=== PATIENT | female | born 1935 | race Hispanic/Latino ===

== ENCOUNTER 2016-05-02 13:54 | Outpatient (CLI) | payer MEDICARE ==
--- NOTE | 2016-05-02 15:28 | Cat Scan Report ---
CT LOWER EXTREMITY LEFT WITHOUT CONTRAST: History: Left knee pain, contusion. Technique: Helical CT with sagittal and coronal reformatted images. Findings: There is moderate to severe osteopenia. On images 55-58, series 3, very subtle nondisplaced fracture lines are identified in the lateral tibial plateau. There is no evidence for bony depression or displaced fragment. The medial tibial plateau and tibial spines are not involved. The distal femur, proximal fibula, and patella are intact. The joint space is unremarkable for this persons age. There may be minimal medial compartment joint space narrowing. A small hemarthrosis extends to the suprapatellar bursa. The remaining soft tissue structures are unremarkable. Impression: Severe osteopenia. Nondisplaced lateral tibial plateau fracture. Small hemarthrosis.
== END 2016-05-02 13:55 | disposition home or self-care (01) ==
LOC: CT 13:54
PROVIDERS: ATTEND Family Medicine
DX: S80.02XA Contusion of left knee, initial encounter (principal); M85.862 Other specified disorders of bone density and structure, left lower leg; M25.08 Hemarthrosis, other specified site; X58.XXXA Exposure to other specified factors, initial encounter; Y93.89 Activity, other specified; Y92.89 Other specified places as the place of occurrence of the external cause; Y99.8 Other external cause status

== ENCOUNTER 2016-06-27 10:52 | Emergency (ER) | payer MEDICARE ==
--- NOTE | 2016-06-27 12:17 | XRay Report ---
RIGHT WRIST, 4 VIEWS: History: wrist pain, injury. Osteopenia is evident. No acute osseous findings or joint pathology is appreciated. Mild osteoarthritic changes are noted. There is mild diffuse soft tissue swelling. IMPRESSION: No acute osseous findings.
[2016-06-27] MEDS ORDERED: BOOSTRIX IM ONE (14:02)
[2016-06-27] MEDS ORDERED: TYLENOL PO ONE (14:02)
--- NOTE | 2016-06-27 15:23 | Emergency Department Report ---
ED Fall HPI - General Chief Complaint: Fall Stated Complaint: FALL/WRIST/FACE SWOLLEN Time Seen by Provider: 06/27/16 13:47 Source: patient, family Mode of arrival: Ambulatory Limitations: No Limitations - History of Present Illness Initial Comments: PT states 2 days ago she was walking down the basement steps and she was on the 2nd step from the bottom and she turned around to go upstairs and fell. PT states she hurt her R wrist. PT states she hit her head on concrete. PT denies neck or back pain. PT states she took 2 tylenol and went to bed. PT states the next morning she woke up and she had blood on her pillow and she realized she had cut her head when she fell. PT states she thought she should seek medical treatment after she saw how bruised her R wrist was MD Complaint: fall Onset/Timin -: Sudden, days(s) Fall From: down stairs (#) (2) When Fall Occurred: # days [employer] (2) Fall Witnessed: no Place Fall Occurred: home Loss of Consciousness: none Prolonged Down Time?: no Symptoms Prior to Fall: none, other (pt states she was turning around to go upstairs and answer phone ) Location: head, other (R wrist ) Location - Extremities: Right: Arm Severity scale (0 -10): 5 Quality: aching Context: tripped/slipped Associated Symptoms: headache. denies: neck pain, chest paint, shortness of breath, abdominal pain, unable to walk, lightheaded, vertigo - Related Data Home Medications Medication Instructions Recorded Confirmed Last Taken Cyanocobalamin (Vitamin B-12) 1,000 mcg IM QWEEK 04/21/15 12/25/15 Unknown [B-12] Lisinopril [Zestril TAB] 20 mg PO DAILY 04/21/15 12/25/15 12/25/15 Previous Rx's Medication Instructions Recorded Last Taken Type Clindamycin [Clindamycin CAP] 150 mg PO Q8HR 10 Days 12/28/15 Unknown Rx Clindamycin [Clindamycin CAP] 300 mg PO Q8H 10 Days 12/28/15 Unknown Rx Acetaminophen [Acetaminophen TAB] 500 mg PO Q6HR PRN #15 tablet 06/27/16 Unknown Rx Allergies Allergy/AdvReac Type Severity Reaction Status Date / Time Sulfa (Sulfonamide Allergy Unknown Verified 04/24/15 14:40 Antibiotics) streptomycin AdvReac Rash Verified 04/24/15 14:40 ED Review of Systems ROS: Stated complaint: FALL/WRIST/FACE SWOLLEN Other details as noted in HPI Comment: All other systems reviewed and negative Respiratory: denies: shortness of breath Cardiovascular: denies: chest pain Gastrointestinal: denies: abdominal pain, nausea, vomiting Musculoskeletal: joint swelling. denies: back pain Skin: change in color (brusing to R wrist ) Neurological: headache. denies: confusion ED Past Medical Hx - Past Medical History Previous Medical History?: Yes Hx Hypertension: Yes Hx CVA: No Hx Heart Attack/AMI: No Hx Congestive Heart Failure: No Hx Diabetes: No Hx Deep Vein Thrombosis: No Hx Pulmonary Embolism: No Hx GERD: No Hx Liver Disease: No Hx Renal Disease: No Hx Sickle Cell Disease: No Hx Arthritis: No Hx Headaches / Migraines: No Hx Seizures: No Hx Kidney Stones: No Hx Psychiatric Treatment: No Hx Asthma: No Hx COPD: No Hx Tuberculosis: No Hx Dementia: No Hx HIV: No Additional medical history: MS - Surgical History Past Surgical History?: Yes Hx Coronary Stent: No Hx Open Heart Surgery: No Hx Pacemaker: No Hx Internal Defibrillator: No Hx Cholecystectomy: No Hx Appendectomy: No Hx Breast Surgery: No Additional Surgical History: OVARIAN CYSTS REMOVED - Social History Smoking Status: Never Smoker Substance Use Type: Prescribed - Medications Home Medications: Home Medications Medication Instructions Recorded Confirmed Last Taken Type Cyanocobalamin (Vitamin B-12) 1,000 mcg IM QWEEK 04/21/15 12/25/15 Unknown History [B-12] Lisinopril [Zestril TAB] 20 mg PO DAILY 04/21/15 12/25/15 12/25/15 History Clindamycin [Clindamycin CAP] 150 mg PO Q8HR 10 Days 12/28/15 Unknown Rx Clindamycin [Clindamycin CAP] 300 mg PO Q8H 10 Days 12/28/15 Unknown Rx Acetaminophen [Acetaminophen TAB] 500 mg PO Q6HR PRN #15 tablet 06/27/16 Unknown Rx ED Physical Exam - General Limitations: No Limitations General appearance: alert, in no apparent distress, other (thin ) - Head Head exam: Present: normocephalic, other (small scab to L Temporal region, linear abrasion to R cheek, not tender. ) - Eye Eye exam: Present: normal appearance, EOMI. Absent: conjunctival injection - ENT ENT exam: Present: normal exam, mucous membranes moist, normal external ear exam - Neck Neck exam: Present: normal inspection, full ROM, other (no post midline c-spine tenderness ). Absent: tenderness - Respiratory Respiratory exam: Present: normal lung sounds bilaterally. Absent: respiratory distress, chest wall tenderness - Cardiovascular Cardiovascular Exam: Present: regular rate, normal rhythm, normal heart sounds - GI/Abdominal GI/Abdominal exam: Present: soft. Absent: tenderness - Extremities Exam Extremities exam: Present: normal capillary refill - Expanded Upper Extremity Exam Right Elbow exam: Present: normal inspection, full ROM. Absent: tenderness Forearm Wrist exam: Present: full ROM, tenderness, swelling, ecchymosis. Absent : deformity, dislocation, tenderness over anatomical snuff box Hand Wrist exam: Present: full ROM, ecchymosis. Absent: tenderness, swelling Vascular: Present: normal capillary refill, radial pulse. Absent: vascular compromise, pulse deficit radial art - Back Exam Back exam: Present: normal inspection, full ROM. Absent: tenderness, CVA tenderness (R), CVA tenderness (L), paraspinal tenderness, vertebral tenderness - Neurological Exam Neurological exam: Present: alert, oriented X3 - Psychiatric Psychiatric exam: Present: normal affect, normal mood - Skin Skin exam: Present: warm, dry ED Course Vital Signs 06/27/16 06/27/16 11:13 16:44 Temperature 98 F Pulse Rate 86 78 Respiratory 16 18 Rate Blood Pressure 173/82 Blood Pressure 154/74 [Left] O2 Sat by Pulse 99 100 Oximetry - Reevaluation(s) Reevaluation #1: 06/27/16 15:49 PT aware of XR and CT results. Reevaluation #2: 06/27/16 16:37 PT placed in velcro splint by nursing staff. pt reports decrease in pain. pt nvi - Pulse Oximetry Interpretation Digit-Finger Initial Pulse Oximetry Readin Actions Taken: none ED Medical Decision Making - Radiology Data Radiology results: report reviewed CT head- nap R wrist - NAP - Differential Diagnosis contusion, fracture, intracranial process Critical Care Time: No Critical care attestation.: If time is entered above; I have spent that time in minutes in the direct care of this critically ill patient, excluding procedure time. ED Disposition Clinical Impression: Head injury Qualifiers: Encounter type: initial encounter Qualified Code(s): S09.90XA - Unspecified injury of head, initial encounter Fall Qualifiers: Encounter type: initial encounter Qualified Code(s): W19.XXXA - Unspecified fall, initial encounter Contusion of wrist, right Qualifiers: Encounter type: initial encounter Qualified Code(s): S60.211A - Contusion of right wrist, initial encounter Disposition: DISCHARGED TO HOME OR SELFCARE Is pt being admited?: No Does the pt Need Aspirin: No Condition: Stable Instructions: Wrist Injury (ED), Fall Prevention for Older Adults (ED), Minor Head Injury (ED) Additional Instructions: Follow up with your PCP in 2-3 days Follow up with your ortho MD in 3-5 days, if your pain persists, you may need repeat imaging Hold hand rail when walking downstairs. Wear your wrist splint when you are up and active. Prescriptions: Acetaminophen [Acetaminophen TAB] 500 mg PO Q6HR PRN #15 tablet PRN Reason: Pain Referrals: JOSE D MAIER MD [Primary Care Provider] - 3-5 Days JONY WASHINGTON MD [Staff Physician] - 3-5 Days Time of Disposition: 15:54
--- NOTE | 2016-06-27 15:35 | Cat Scan Report ---
CT HEAD WITHOUT CONTRAST: HISTORY: Head injury. TECHNIQUE: Sequential CT images without contrast. FINDINGS: Images obtained show bilateral prominence of the sulci and ventricles. There are no abnormal intra- or extra-axial blood or fluid collections. There are no focal masses or evidence of mass effect. The lucero white matter differentiation appears within normal limits. Regions of periventricular decreased attenuation are consistent with microangiopathic ischemic disease. The posterior fossa structures including the fourth ventricle, cerebellum, and brainstem appear normal. IMPRESSION: Evidence of atrophy and microangiopathic ischemic disease. No acute intracranial process noted.
[2016-06-27 16:45] VITALS: BP 154/74
== END 2016-06-27 16:45 | disposition home or self-care (01) ==
LOC: ED 10:52
DX: S09.90XA Unspecified injury of head, initial encounter (principal); S60.211A Contusion of right wrist, initial encounter; I10 Essential (primary) hypertension; W10.8XXA Fall (on) (from) other stairs and steps, initial encounter; Y93.89 Activity, other specified; Y99.8 Other external cause status; Y92.89 Other specified places as the place of occurrence of the external cause; Z88.2 Allergy status to sulfonamides; Z88.1 Allergy status to other antibiotic agents
CPT/HCPCS: 70450; 90471; 90715

== ENCOUNTER 2020-11-25 12:12 | Emergency (ER) | payer MEDICARE ==
[2020-11-25] MEDS ORDERED: ONDANSETRON 4 MG/2 ML INJ IV ONE (12:26)
[2020-11-25] MEDS ORDERED: SODIUM CHLORIDE 0.9% 1000 ML 1,000 ML IV ONE (12:26)
--- NOTE | 2020-11-25 12:29 | Emergency Department Report ---
ED N/V/D HPI - General Stated complaint: DIARRHEA/VOMITING Time Seen by Provider: 11/25/20 12:25 - History of Present Illness Initial comments: Patient presents secondary to nausea, vomiting, and diarrhea. Symptoms started about 30 minutes prior to arrival. She states that she felt like she was going to be sick. She then all of a sudden had abrupt onset of nausea, vomiting, and diarrhea. There is no hematemesis or coffee-ground emesis. There is no melenic stool. She has had no sick contacts. She has not been on antibiotics lately. She does not know what might be causing her stomach upset. She has not had anything like this before. She states she does not know what she ate last night for dinner. This morning, she had toast and a cup of tea and that seemed to taste okay. There is no abdominal pain associate with this. - Related Data Home Medications Medication Instructions Recorded Confirmed Last Taken Cyanocobalamin (Vitamin B-12) 1,000 mcg IM QWEEK 04/21/15 12/09/16 Unknown [B-12] lisinopriL [Zestril TAB] 20 mg PO DAILY 04/21/15 12/09/16 12/25/15 Previous Rx's Medication Instructions Recorded Last Taken Type Acetaminophen [Acetaminophen TAB] 500 mg PO Q6HR PRN #15 tablet 06/27/16 Unknown Rx Ondansetron [Zofran Odt] 4 mg PO Q8HR PRN #20 tab.rapdis 11/25/20 Unknown Rx Allergies Allergy/AdvReac Type Severity Reaction Status Date / Time Sulfa (Sulfonamide Allergy Unknown Verified 04/24/15 14:40 Antibiotics) streptomycin AdvReac Rash Verified 04/24/15 14:40 ED Review of Systems ROS: Stated complaint: DIARRHEA/VOMITING Other details as noted in HPI Comment: All other systems reviewed and negative Constitutional: denies: fever Eyes: denies: eye pain ENT: denies: throat pain Respiratory: denies: cough Cardiovascular: denies: chest pain Endocrine: denies: unexplained weight loss Gastrointestinal: as per HPI Genitourinary: denies: urgency Musculoskeletal: denies: back pain Skin: denies: rash Neurological: denies: headache Hematological/Lymphatic: denies: easy bruising ED Past Medical Hx - Past Medical History Hx Hypertension: Yes Hx CVA: No Hx Heart Attack/AMI: No Hx Congestive Heart Failure: No Hx Diabetes: No Hx Deep Vein Thrombosis: No Hx Pulmonary Embolism: No Hx GERD: No Hx Liver Disease: No Hx Renal Disease: No Hx Sickle Cell Disease: No Hx Arthritis: Yes Hx Headaches / Migraines: No Hx Seizures: No Hx Kidney Stones: No Hx Psychiatric Treatment: No Hx Asthma: No Hx COPD: No Hx Tuberculosis: No Hx Dementia: No Hx HIV: No Additional medical history: MS - Surgical History Hx Coronary Stent: No Hx Open Heart Surgery: No Hx Pacemaker: No Hx Internal Defibrillator: No Hx Cholecystectomy: No Hx Appendectomy: No Hx Breast Surgery: No Additional Surgical History: OVARIAN CYSTS REMOVED - Family History Family history: hypertension - Social History Smoking Status: Never Smoker - Medications Home Medications: Home Medications Medication Instructions Recorded Confirmed Last Taken Type Cyanocobalamin (Vitamin B-12) 1,000 mcg IM QWEEK 04/21/15 12/09/16 Unknown History [B-12] lisinopriL [Zestril TAB] 20 mg PO DAILY 04/21/15 12/09/16 12/25/15 History Acetaminophen [Acetaminophen TAB] 500 mg PO Q6HR PRN #15 tablet 06/27/16 12/09/16 Unknown Rx Ondansetron [Zofran Odt] 4 mg PO Q8HR PRN #20 tab.rapdis 11/25/20 Unknown Rx ED Physical Exam - General Limitations: No Limitations, Other (Pulse ox noted and normal) General appearance: alert, in no apparent distress - Head Head exam: Present: atraumatic, normocephalic, normal inspection - Eye Eye exam: Present: normal appearance, EOMI. Absent: scleral icterus - ENT ENT exam: Present: normal exam, mucous membranes dry, normal external ear exam - Neck Neck exam: Present: normal inspection. Absent: meningismus - Respiratory Respiratory exam: Present: normal lung sounds bilaterally. Absent: respiratory distress - Cardiovascular Cardiovascular Exam: Present: regular rate, normal rhythm - GI/Abdominal GI/Abdominal exam: Present: soft. Absent: tenderness - Extremities Exam Extremities exam: Present: normal capillary refill. Absent: pedal edema - Back Exam Back exam: Absent: CVA tenderness (R), CVA tenderness (L) - Neurological Exam Neurological exam: Present: alert, oriented X3, CN II-XII intact. Absent: motor sensory deficit - Psychiatric Psychiatric exam: Present: normal affect, normal mood - Skin Skin exam: Present: warm, dry ED Course Vital Signs 11/25/20 11/25/20 11/25/20 12:22 13:01 13:15 Temperature 98.1 F Pulse Rate 74 80 Respiratory 18 29 H Rate Blood Pressure 207/90 Blood Pressure 159/72 [Left] O2 Sat by Pulse 98 96 98 Oximetry 11/25/20 11/25/20 11/25/20 13:27 13:45 14:15 Temperature Pulse Rate 86 79 91 H Respiratory 14 18 24 Rate Blood Pressure 207/90 217/101 Blood Pressure 211/99 [Left] O2 Sat by Pulse 98 100 99 Oximetry - Reevaluation(s) Reevaluation #1: 11/25/20 12:28 EMS was met upon arrival. IV and labs are ordered. Reevaluation #2: 11/25/20 14:27 Labs are noted. Patient was discharged. ED Medical Decision Making - Lab Data Result diagrams: 11/25/20 12:43 11/25/20 12:43 - Medical Decision Making Patient presents with nausea, vomiting, and diarrhea. This is abrupt onset. There is no abdominal tenderness on exam. She certainly does not have evidence of pancreatitis or hepatitis. There is no McBurney's point tenderness to suggest appendicitis. There is no distention or tympany to suggest bowel obstruction. She does not have any rebound or guarding. There is no pulsatile mass to suggest AAA. She was feeling better and subsequently discharged. We did give Zofran for home use. Critical Care Time: No Critical care attestation.: If time is entered above; I have spent that time in minutes in the direct care of this critically ill patient, excluding procedure time. ED Disposition Clinical Impression: Nausea vomiting and diarrhea Disposition: 01 HOME / SELF CARE / HOMELESS Is pt being admited?: No Condition: Stable Instructions: Nausea and Vomiting, Adult, Diarrhea, Adult, [id number], Food Choices to Help Relieve Diarrhea, Adult Additional Instructions: Have a bland diet. Drink plenty water. Return for problems. Follow-up with your regular doctor for recheck and further management. Continue home medication. Avoid salt. Prescriptions: Ondansetron [Zofran Odt] 4 mg PO Q8HR PRN #20 tab.rapdis PRN Reason: Nausea Referrals: PRIMARY CARE, [Referring] - 3-5 Days BRIANA HELTON MD [Staff Physician] - 3-5 Days
[2020-11-25 13:23] LABS: Alanine Aminotransferase 10 units/L (7-56); Albumin 3.8 g/dL (3.9-5); Blood Urea Nitrogen 22 mg/dL (7-17); Calcium 9.7 mg/dL (8.4-10.2); Hemolysis Index 7
[2020-11-25 13:24] LABS: BUN/Creatinine Ratio 31
[2020-11-25 13:28] LABS: Hematocrit 38.4 % (30.3-42.9); Hemoglobin 12.9 gm/dl (10.1-14.3); Mean Corpuscular HGB Conc 34 % (30-34); Mean Corpuscular Volume 90 fl (79-97); Platelet Count 245 K/mm3 (140-440); Red Blood Count 4.29 M/mm3 (3.65-5.03); Red Cell Distribution Width 14.3 % (13.2-15.2)
[2020-11-25] MEDS ORDERED: LISINOPRIL 20 MG TAB PO ONE (14:25)
[2020-11-25 16:39] VITALS: BP 201/91
== END 2020-11-25 15:49 | disposition home or self-care (01) ==
LOC: ED 12:12
DX: R11.2 Nausea with vomiting, unspecified (principal); R19.7 Diarrhea, unspecified; I10 Essential (primary) hypertension; M19.90 Unspecified osteoarthritis, unspecified site; Z98.890 Other specified postprocedural states; Z88.1 Allergy status to other antibiotic agents; Z88.2 Allergy status to sulfonamides
CPT/HCPCS: 36415; 80053; 83690; 85027; 96360; 99284